=== PATIENT | male | born 1965 | race Caucasian/White ===

== ENCOUNTER → 2018-02-24 11:37 | Outpatient (REF) | payer OTHER, SELFPAY ==
[2018-02-24 19:07] LABS: ALT 37 U/L (12-78); AST 20 U/L (15-37); Albumin 3.9 g/dL (3.4-5.0); Alkaline Phosphatase 54 U/L (46-116); Anion Gap 11.3 mmol/L (3-11); BUN 18 mg/dL (7-18); Bilirubin, Total 0.5 mg/dL (0.2-1.0); CO2 24.7 mmol/L (21.0-32.0); Calcium 8.8 mg/dL (8.5-10.1); Chloride 103 mmol/L (98-107); Glucose 103 mg/dL (70-100); Potassium 3.9 mmol/L (3.5-5.1); Sodium 139 mmol/L (136-145); Total Protein 6.8 g/dL (6.4-8.2)
== END ==
LOC: NCHCN 11:37
PROVIDERS: PCP Family Medicine; Visit Provider Family Medicine
DX: R60.0 Localized edema (principal)
CPT/HCPCS: 80053

== ENCOUNTER 2018-06-01 09:28 | Outpatient (REF) | payer OTHER, SELFPAY ==
[2018-06-01 12:47] LABS: HGB 15.5 g/dL (13.5-17.5); Mean Corp. HGB Concentration 35.2 g/dL (32.0-36.0); Mean Corpuscular Hemoglobin 30.4 pg (27.0-33.0); Mean Corpuscular Volume 86.3 fL (80-95); Mean Platelet Volume 9.7 fL (8.0-11.0); Platelet Count 275 x1000/uL (130-400); RBC Distribution Width 12.8 % (11.8-14.1); White Blood Cell Count 5.76 k/cumm (4.4-10.8)
[2018-06-01 13:07] LABS: Magnesium 1.7 mg/dL (1.8-2.4); TSH (W/Ref FT4) 2.27 uIU/mL (0.358-3.74)
== END 2018-06-01 09:48 ==
LOC: NCHCN 09:28
PROVIDERS: PCP Family Medicine; Visit Provider Family Medicine
DX: R00.2 Palpitations (principal)
CPT/HCPCS: 85027; 83735; 84443

== ENCOUNTER 2018-09-02 09:01 | Day surgery (SDC) | payer OTHER, SELFPAY ==
[2018-09-02 09:19] VITALS: BP 143/83; PULSE 80; RESP 16; TEMP 36.5; O2SAT 96
[2018-09-02] MEDS: Lactated Ringers 1,000 ML 80 ML IV (09:43)
--- NOTE | 2018-09-02 11:43 | BOWEL_PTH ---
PATIENT: Mitesh Mauricio LOC: [facility] U#:[id number] AGE/SX: 52/M ROOM: RE09/02/[address]: Mark Mobley III : 1965 BED: DIS: 09/02/2018 SPEC #: [id number] RECD: 09/02/18 12:53 STATUS: OZIEL REGianfranco #: [id number] NICOLE: 09/02/18 11:[address]: Mark Mobley III DEPT: Surgical Specimen RECD BY: Mary Blanco ENTERED: 09/02/18 12:54 SP TYPE: Bowel OTHR DR: Chinedu George Tissues: 1 - BIOPSY BOWEL 2 - BIOPSY BOWEL Procedures: GROSS AND MICRO LEVEL 4 Comments: [id number]
--- NOTE | 2018-09-02 11:55 | W.COLOREPORT ---
Date of service: 09/02/18 Time of Service: 11:55 Colonoscopy Report Date of procedure: 09/02/18 Pre-op diagnosis general: screening colonoscopy Post-op diagnosis procedure note: other (descending polyp, rectal polyp) Procedure: screening colonoscopy with polypectomy x 2 Surgeon: Mark Mobley III Anesthesia proc note operative: MAC Pathology: other (rectal polyp, descending polyp) Complications: None Disposition: PACU Prep: GoLYTELY Procedure Description: After informed consent was obtained the patient was taken to the procedure room and placed in a left decubitous position. Monitors were applied and a time out was done. The patients name, date of , procedure, allergies to medications and metal in their body was reviewed. The patient was then sedated. Once sedated and comfortable a rectal exam was done. External exam was normal. Internal exam revealed a normal sphincter tone and no palpable masses. The prostate normal. The scope was then introduced and retrofelexed. No internal hemorrhoids were identified. The scope was then advanced to the cecum with out difficulty. The TI and appendiceal orifice were identified. The prep was adequate. The scope was then slowly retracted over 10 minutes back into the rectum. Polyps were removed at descending colon and rectum. The scope was removed and the patient was woken up and taken back to Same day surgery in stable condition. The patient tolerated the procedure well and there were no immediate complications. Follow up: The patient should follow up in ? years (pending path) unless they develop changes in bowel habits or other new gastrointestinal complaints.
--- NOTE | 2018-09-02 11:59 | PDOC.DSDIS_ITS ---
Discharge Plan Disposition Patient Disposition: HOME Condition: Stable Discharge Details Reason For Visit: screening colonoscopy Attending Provider: Mark Mobley III Primary Care Provider: Chinedu George [place] Meds and New Rx's Prescriptions: Continued magnesium 200 mg tablet 400 mg PO DAILY RF: 0 bisacodyl [Dulcolax (bisacodyl)] 5 mg tablet,delayed release (DR/EC) 5 mg PO ONCE Qty: 4 RF: 0 polyethylene glycol 3350 17 gram/dose powder 255 g PO ONCE Qty: 255 RF: 0 metoprolol tartrate 25 MG tablet 50 mg PO DAILY RF: 0 losartan 25 MG tablet 25 mg PO DAILY RF: 0 Discharge Instructions Stand Alone Forms: Colonoscopy Post Instructions, Jose Torres (DSU) Activity:: Activity as Tolerated Diet:: As Tolerated Discharge Orders Discharge Orders: Discharge Order (Routine); Ordered 09/02/18 Ordered By: Mark Mobley III DS: Diagnosis Discharge Diagnosis (1) Encounter for screening colonoscopy: Status: Acute (2) Polyp of rectum: Status: Acute (3) Polyp of descending colon: Status: Acute
[2018-09-02 12:35] VITALS: BP 90/50; PULSE 67; RESP 16; TEMP 36.6; O2SAT 96
== END 2018-09-02 13:45 | disposition home or self-care (01) ==
PROVIDERS: PCP Family Medicine; Visit Provider Surgery
PROC: 0DJD8ZZ Inspection of Lower Intestinal Tract, Via Natural or Artificial Opening Endoscopic (ICD-10-PCS; CPT 45378; principal; 2018-09-02 11:45)
DX: Z12.11 Encounter for screening for malignant neoplasm of colon (principal); K63.5 Polyp of colon; K21.9 Gastro-esophageal reflux disease without esophagitis; I10 Essential (primary) hypertension
CPT/HCPCS: 45380; 88305

== ENCOUNTER 2019-04-10 11:11 | Outpatient (REF) | payer OTHER, SELFPAY ==
[2019-04-10 13:28] LABS: Anion Gap 9.1 mmol/L (3-11); BUN 18 mg/dL (7-18); CO2 25.9 mmol/L (21.0-32.0); CREATININE 0.83 mg/dL (0.70-1.30); Chloride 105 mmol/L (98-107); Glucose 98 mg/dL (70-100); Magnesium 1.8 mg/dL (1.8-2.4); Potassium 4.6 mmol/L (3.5-5.1); Sodium 140 mmol/L (136-145)
== END 2019-04-10 11:31 ==
LOC: NCHCN 11:11
PROVIDERS: PCP Family Medicine; Visit Provider Family Medicine
DX: E83.42 Hypomagnesemia (principal); I10 Essential (primary) hypertension
CPT/HCPCS: 80048; 83735

== ENCOUNTER 2020-01-31 17:37 | Outpatient (REF) | payer OTHER, SELFPAY ==
[2020-01-31 19:51] LABS: Anion Gap 8.4 mmol/L (3-11); BUN 21 mg/dL (7-18); CO2 26.6 mmol/L (21.0-32.0); CREATININE 0.83 mg/dL (0.70-1.30); Calcium 9.1 mg/dL (8.5-10.1); Chloride 104 mmol/L (98-107); Glucose 88 mg/dL (74-106); Potassium 4.2 mmol/L (3.5-5.1); Sodium 139 mmol/L (136-145); TSH (W/Ref FT4) 3.37 uIU/mL (0.36-3.74)
== END 2020-01-31 17:57 ==
LOC: NCHCN 17:37
PROVIDERS: PCP Family Medicine; Visit Provider Family Medicine
DX: R00.2 Palpitations (principal); E83.42 Hypomagnesemia
CPT/HCPCS: 80048; 83735; 84443

== ENCOUNTER 2020-06-27 05:34 | Outpatient (CLI) | payer OTHER, SELFPAY ==
--- NOTE | 2020-07-15 09:14 | ZIOP_ITS ---
Date of service: 07/15/20 Time of Service: 09:15 14 Day Electrical Laboratory Technician Referring Provider:: Chinedu George Indications:: Palpitations Note: This is a 14-day event monitor ordered for symptoms of palpitations Rhythm throughout was sinus. Average heart rate was 80, minimum 46 and maximum 137 There were very rare atrial premature beats There were occasional ventricular ectopic beats There was no atrial fibrillation, no pauses greater than 3 seconds, no high- grade AV block Patient symptoms correlated to sinus tachycardia, sinus rhythm, and an isolated PVC
== END 2020-06-27 05:54 ==
PROVIDERS: PCP Family Medicine; Visit Provider Family Medicine
DX: R00.2 Palpitations (principal)
CPT/HCPCS: 0296T

== ENCOUNTER 2021-04-16 17:27 | Outpatient (REF) | payer OTHER, SELFPAY ==
[2021-04-16 20:07] LABS: BUN 20 mg/dL (7-18); CO2 23.3 mmol/L (21.0-32.0); CREATININE 0.8 mg/dL (0.70-1.30); Calcium 9.2 mg/dL (8.5-10.1); Calculated LDL 150 mg/dL (<100); Cholesterol 225 mg/dL (<200); Glucose 104 mg/dL (74-106); HDL Cholesterol 56 mg/dL (40-60); Magnesium 1.9 mg/dL (1.8-2.4); Triglyceride 96 mg/dL (<150)
[2021-04-16 20:26] LABS: Anion Gap 10.7 mmol/L (3-11); Chloride 104 mmol/L (98-107); Potassium 4.8 mmol/L (3.5-5.1); Sodium 138 mmol/L (136-145)
== END 2021-04-16 17:28 | disposition home or self-care (01) ==
LOC: NCHCN 17:27
PROVIDERS: PCP Family Medicine; Visit Provider Family Medicine
DX: I10 Essential (primary) hypertension (principal); E78.5 Hyperlipidemia, unspecified; Z00.00 Encounter for general adult medical examination without abnormal findings
CPT/HCPCS: 80048; 80061; 83735

== ENCOUNTER 2022-05-18 15:24 | Outpatient (REF) | payer OTHER, SELFPAY ==
[2022-05-18 16:05] LABS: Anion Gap 7.3 mmol/L (3-11); BUN 20 mg/dL (7-18); CO2 27.7 mmol/L (21.0-32.0); CREATININE 0.9 mg/dL (0.70-1.30); Calcium 9.2 mg/dL (8.5-10.1); Chloride 104 mmol/L (98-107); Estimated GFR 100.24 (mL/min/1.73m2); Glucose 101 mg/dL (74-106); Magnesium 1.9 mg/dL (1.8-2.4); Potassium 4.2 mmol/L (3.5-5.1); Sodium 139 mmol/L (136-145)
== END 2022-05-18 15:25 | disposition home or self-care (01) ==
LOC: NCHCN 15:24
PROVIDERS: PCP Family Medicine; Visit Provider Family Medicine
DX: I10 Essential (primary) hypertension (principal); E83.42 Hypomagnesemia
CPT/HCPCS: 80048; 83735

== ENCOUNTER 2023-05-28 18:13 | Outpatient (REF) | payer OTHER, SELFPAY ==
[2023-05-28 14:55] LABS: Anion Gap 7.8 mmol/L (3-11); BUN 19 mg/dL (7-18); CO2 26.2 mmol/L (21.0-32.0); CREATININE 0.8 mg/dL (0.70-1.30); Calcium 9.8 mg/dL (8.5-10.1); Chloride 104 mmol/L (98-107); Estimated GFR 103.22 (mL/min/1.73m2); Glucose 100 mg/dL (74-106); Potassium 4.5 mmol/L (3.5-5.1); Sodium 138 mmol/L (136-145)
== END 2023-05-28 18:14 | disposition home or self-care (01) ==
LOC: NCHCN 18:13
PROVIDERS: PCP Family Medicine; Visit Provider Family Medicine
DX: Z00.00 Encounter for general adult medical examination without abnormal findings (principal); I10 Essential (primary) hypertension
CPT/HCPCS: 80048

== ENCOUNTER → 2023-06-29 12:45 | Outpatient (CLI) | payer OTHER, SELFPAY ==
--- NOTE | 2023-06-29 12:00 | DI.RAD_ITS ---
Exam(s) XR SHOULDER LT COMPLETE 2+V EXAM: XR SHOULDER LT COMPLETE 2+V CLINICAL HISTORY: PAIN IN LT SHOULDER M25.512. TECHNIQUE: 2D digital imaging was performed. Five views. COMPARISON: No exams were available for comparison FINDINGS: BONES: No acute fracture is present. No bony destructive lesion is seen. JOINTS: No dislocation present. [id number] spurring at the AC joint. Glenohumeral joint space is maintained. Minimal spurring at the glenoid. SOFT TISSUE: Tiny calcification projecting at the greater tuberosity could indicate mild calcific ten dinosis. IMPRESSION: Mild degenerative changes. Question mild tendon calcification. DATA REPOSITORY: RADIATION DOSE DELIVERED:
== END ==
PROVIDERS: PCP Family Medicine; Visit Provider Physician Assistant
DX: M25.512 Pain in left shoulder (principal)
CPT/HCPCS: 73030

== ENCOUNTER 2024-05-19 18:23 | Outpatient (REF) | payer OTHER, SELFPAY ==
[2024-05-19 18:07] LABS: Anion Gap 7.9 mmol/L (3-11); BUN 19 mg/dL (7-18); CO2 29.1 mmol/L (21.0-32.0); CREATININE 0.9 mg/dL (0.70-1.30); Calcium 9.2 mg/dL (8.5-10.1); Chloride 107 mmol/L (98-107); Glucose 106 mg/dL (74-106); Magnesium 1.9 mg/dL (1.8-2.4); Sodium 144 mmol/L (136-145)
--- OUTSIDE RECORDS SUMMARY | 2024-05-19 18:23 | XMS_ITS | Encounter Summary ---
Author Organization [facility] Address [address] [place] [address] Care Team Providers Care Senior Science Consultant Name Role Phone Unknown, Provider Primary Care Provider Unaagata ilarabella Encounter Details Date Type Department Care Team (Latest Contact Info) Description 09/02/2018 12:05 EST - 09/02/2018 23:59 EST Hospital Encounter [address] [address] Unknown, ProviderMD Discharge Disposition: Home or Self Care Social History Tobacco Use Types Packs/Day Years Used Date Smoking Tobacco: Never Assessed Sex and Gender Information Value Date Recorded Sex Assigned at Not on file Gender Identity Not on file Sexual Orientation Not on file documented as of this encounter Discharge Disposition Disposition Code Departure Means Destination Home or Self Intermediate documented in this encounter Plan of Treatment Not on file documented as of this encounter Visit Diagnoses Not on filedocumented in this encounter Care Teams Senior Science Consultant Relationship Specialty Start Date End Date Unknown, ProviderMD PCP - General 09/02/18 09/05/18 documented as of this encounter
--- OUTSIDE RECORDS SUMMARY | 2024-05-19 18:23 | XMS_ITS | Clinical Summary ---
Author Organization [facility] Address [address] [place] [address] Care Team Providers Care Hotel Office Manager Name Role Phone Chinedu George MD Primary Care Provider Social History Tobacco Use Types Packs/Day Years Used Date Smoking Tobacco: Never Assessed Interpersonal Safety Answer Date Record ed Physically Hurt Never 02/19/2020 Verbally Threaten Not on file 02/19/2020 Sex and Gender Information Value Date Recorded Sex Assigned at Not on file Gender Identity Not on file Sexual Orientation Not on file Plan of Treatment Health Maintenance Due Date Last Done Comments Hepatitis C Screen 1965 Hepatitis B Vaccine (1 of 3 - 19+ 3-dose series) 09/03 COVID-19 Vaccine (2022-24 season) 2023 Care Teams Hotel Office Manager Relationship Specialty Start Date End Date Chinedu George MD [facility] [place] [address] PCP - General 09/06/18
--- OUTSIDE RECORDS SUMMARY | 2024-05-19 18:23 | XMS_ITS | Referral Summary ---
Author Organization [facility] Address [address] [place] [address] Care Team Providers Care Gas Usage Meter Clerk Name Role Phone Chinedu George MD Primary Care Provider [phone] Social History Tobacco Use Types Packs/Day Years Used Date Smoking Tobacco: Never Assessed Interpersonal Safety Answer Date Record ed Physically Hurt Never 02/19/2020 Verbally Threaten Not on file 02/19/2020 Sex and Gender Information Value Date Recorded Sex Assigned at Not on file Gender Identity Not on file Sexual Orientation Not on file Plan of Treatment Not on file Care Teams Gas Usage Meter Clerk Relationship Specialty Start Date End Date Chinedu George MD [place] [address] PCP - General 09/06/18
--- OUTSIDE RECORDS SUMMARY | 2024-05-19 18:24 | XMS_ITS | Encounter Summary ---
Author Organization [facility] Address [address] [place] [address] Care Team Providers Care Stone Sawyer Name Role Phone Unknown, Provider Primary Care Provider Unava ilable Encounter Details Date Type Department Care Team (Late st Contact Info) Description 09/02/2018 Results Only [facility] [phone] Mark Mobley, DO [address] [place] [phone] Social History Tobacco Use Types Packs/Day Years Used Date Smoking Tobacco: Never Assessed Sex and Gender Information Value Date Recorded Sex Assigned at Not on file Gender Identity Not on file Sexual Orientation Not on file documented as of this encounter Plan of Treatment Not on file documented as of this encounter Procedures Procedure Name Priority Date/Time Associated Diagnosis Comments SURGICAL PATHOLOGY Routine 09/02/2018 19 :07 EST documented in this encounter Results * SURGICAL PATHOLOGY (09/02/2018 19:07 EST) Pathology Report: SURGICAL PATHOLOGY REPORT Reports generated via electronic interface contain original data; however they are lacking the format of the original report. Caution should be taken when reading/interpret ing unformatted reports. Name: ? DAWIT JADE ? Accession #: ? [id number] ? : ? 1965 (Age: 52) ??M ? Collect Date: ? 09/02/2018 ? Location: ? [facility] ? Receive Date: ? 09/02/2018 ? Provider: MARK MOBLEY DO Copy to: GERI MACK MD ? Final Pathologic Diagnosis: A. COLON, DESCENDING, POLYP, BIOPSY: - Colonic mucosa with prominent lymphoid aggregate. - Deeper levels have been examined. B. RECTUM, POLYP, BIOPSY: - Rectal mucosa with prominent lymphoid aggregate and prolapse change. - Deeper levels have been examined. Document reviewed and electronically signed by: MARCO A MILLIGAN MD Report ??Date: 09/06/2018 08:37 By the signature above, the attending physician certifies that he/she has personally conducted a gross and/or microscopic examination of the described specimens and rendered or confirmed the above diagnosis. Specimen(s) Received: A. ??Descending colon polyp (#1) B. ??Rectal polyp (#2) Clinical History: Colon cancer screening polyp Gross Description: A. ?Received in formalin labelled with proper patient identification (initials C, M) and descending colon polyp is a single pink-garcia tissue fragment (0.3 x 0.3 x 0.2 cm). Submitted intact in A1. B. ?Received in formalin labelled with proper patient identification (initials C, M) and rectal polyp is a single, garcia-white tissue fragment (0.2 x 2.2 x 0.1 cm). Submitted intact in B1. Dr. Tan 2018 10:00 AM End of Report [facility] 09/02/2018 19:0 7 EST 09/02/2018 19:07 EST Mark Mobley DO PATHOLOGY ORDERABL ES [facility] [address] [place] [address] documented in this encounter Visit Diagnoses Not on filedocumented in this encounter Care Teams Stone Sawyer Relationship Specialty Start Date End Date Unknown, Provider, PCP - General 09/02/18 09/05/18 documented as of this encounter
== END 2024-05-19 18:24 | disposition home or self-care (01) ==
LOC: NCHCN 18:23
PROVIDERS: PCP Family Medicine; Visit Provider Student in an Organized Health Care Education/Training Program
DX: I10 Essential (primary) hypertension (principal)
CPT/HCPCS: 80048; 83735

== ENCOUNTER 2024-07-15 11:25 | Outpatient (CLI) | payer OTHER, SELFPAY ==
--- OUTSIDE RECORDS SUMMARY | 2024-07-15 11:27 | XMS_ITS | Encounter Summary ---
Author Organization [facility] Address [address] [place] [address] Care Team Providers Care Sheet Manufacturing Supervisor Name Role Phone Unknown, Provider Primary Care Provider Unava ilable Encounter Details Date Type Department Care Team (Late st Contact Info) Description 09/02/2018 Results Only [facility] [phone] Mark Mobley, DO [address] [place] [phone] Social History Tobacco Use Types Packs/Day Years Used Date Smoking Tobacco: Never Assessed Sex and Gender Information Value Date Recorded Sex Assigned at Not on file Legal Sex Male 19:05 EST Gender Identity Not on file Sexual Orientation [...] ? DAWIT JADE ? Accession #: ? [id number] ? : ? 1965 (Age: 52) ??M [...] Tan 2018 10:00 AM End of Report [facility] 09/02/2018 19:0 7 EST 09/02/2018 19:07 EST us Mark Mobley DO PATHOLOGY ORDERABLES Final Result [facility] [address] [place] [address] documented in this encounter Visit Diagnoses Not on filedocumented in this encounter Care Teams Sheet Manufacturing Supervisor Relationship Specialty Start Date End Date Unknown, Provider, PCP - General 09/02/18 09/05/18 documented as of this encounter
--- OUTSIDE RECORDS SUMMARY | 2024-07-15 11:27 | XMS_ITS | Referral Summary ---
Author Organization [facility] Address [address] [place] [address] Care Team Providers Care Chainstitch Sewing Machine Operator Name Role Phone Chinedu George MD Primary Care Provider [phone] Social History Tobacco Use Types Packs/Day Years [...] of Treatment Not on file Care Teams Chainstitch Sewing Machine Operator Relationship Specialty Start Date End Date Chinedu [place] [address] PCP - General 09/06/18
--- OUTSIDE RECORDS SUMMARY | 2024-07-15 11:27 | XMS_ITS | Encounter Summary ---
Author Organization [facility] Address [address] [place] [address] Care Team Providers Care Patient Accounts Specialist Name Role Phone Unknown, Provider Primary Care Provider Unava ilable Encounter Details Date Type Department Care Team (Latest Contact Info) Description 09/02/2018 12:05 EST - 09/02/2018 23:59 EST Hospital Encounter [address] [address] Unknown, Provider, Discharge Disposition: Home or Self Care Social History Tobacco Use Types Packs/Day Years Used Date Smoking Tobacco: Never Assessed Sex and Gender Information Value Date Recorded Sex Assigned at Not on file Legal Sex Male 19:05 EST Gender Identity Not on file Sexual Orientation Not on file documented as of this encounter Discharge Disposition Disposition Code Departure Means Destination Home or Self Penitentiary documented in this encounter Plan of Treatment Not on file documented as of this encounter Visit Diagnoses Not on filedocumented in this encounter Care Teams Patient Accounts Specialist Relationship Specialty Start Date End Date Unknown, Provider, PCP - General 09/02/18 09/05/18 documented as of this encounter
--- OUTSIDE RECORDS SUMMARY | 2024-07-15 11:27 | XMS_ITS | Clinical Summary ---
Author Organization [facility] Address [address] [place] [address] Care Team Providers Care Emergency Worker Name Role Phone Chinedu George MD Primary Care Provider [phone] Social History Tobacco Use Types Packs/Day Years [...] - 19+ 3-dose series) 09/03 COVID-19 Vaccine (2023- season) 2024 Care Teams Emergency Worker Relationship Specialty Start Date End Date Chinedu George MD [address] [place] [address] PCP - General 09/06/18
--- NOTE | 2024-07-15 12:23 | DI.RAD_ITS ---
Exam(s) XR FINGER LT INDEX EXAM: XR FINGER LT INDEX CLINICAL HISTORY: finger pain, MCP. TECHNIQUE: 2D digital imaging was performed. Three views. COMPARISON: None. FINDINGS: BONES: No acute fracture is present. No bony destructive lesion is seen. JOINTS: No dislocation present. Narrowing of the distal interphalangeal joints of the 2nd and 3rd fi ngers with prominent periarticular spurring. Mild spurring at the 2nd metacarpal head. No narrowing of the 2nd MCP joint. SOFT TISSUE: Normal. IMPRESSION: No evidence of acute fracture, dislocation, or subluxation. DATA REPOSITORY: RADIATION DOSE DELIVERED:
--- NOTE | 2024-07-15 13:52 | DI.VRAD_ITS ---
PROCEDURE INFORMATION: Exam: XR Left Finger(s) Exam date and time: 07/15/2024 12:29 PM Age: 58 years old Clinical indication: Other: Pain, mcp TECHNIQUE: Imaging protocol: Radiologic exam of the left fingers. Views: Minimum 2 views. COMPARISON: No relevant prior studies available. FINDINGS: Bones/joints: Imaging is centered on the 2nd finger. No acute fracture or dislocation is identified. There is very mild osteophyte formation about the 2nd metacarpophalangeal and proximal interphalangeal joints, with mild to moderate osteophyte formation about the 2nd distal interphalangeal joint. Mild osteophyte formation is present about some other partially evaluated interphalangeal joints as well. There is no osseous erosion or cortical destruction. Soft tissues: The soft tissues of the 2nd finger are mildly swollen. IMPRESSION: 1. Degenerative changes as described. 2. Mild nonspecific soft tissue swelling of the 2nd finger. Dictated and Authenticated by: Beni Payton MD. Ordering:NIKA Carbajal MD
== END 2024-07-15 11:45 ==
PROVIDERS: PCP Family Medicine; Visit Provider Physician Assistant
DX: M79.645 Pain in left finger(s) (principal)
CPT/HCPCS: 73140

== ENCOUNTER 2024-08-02 14:45 | Outpatient (REF) | payer OTHER, SELFPAY ==
[2024-08-02 15:35] LABS: C-Reactive Protein < 0.50 mg/dL (<or=0.5); Uric Acid 5.1 mg/dL (3.5-7.2)
[2024-08-02 22:08] LABS: Rheumatoid Factor <8.6 IU/mL (<12.0)
[2024-08-03 08:35] LABS: Cyclic Citrullinated Peptide <2.5 U/mL (<5.0)
[2024-08-03 09:46] LABS: Lyme Ab w Rflx to Lyme Confirm Negative (Negative)
== END 2024-08-02 14:46 | disposition home or self-care (01) ==
LOC: NCHCN 14:45
PROVIDERS: PCP Student in an Organized Health Care Education/Training Program; Visit Provider Student in an Organized Health Care Education/Training Program
DX: M25.542 Pain in joints of left hand (principal)
CPT/HCPCS: 85027; 85652; 86200; 84550; 86140; 86431; 86618

== ENCOUNTER 2024-08-04 13:48 | Outpatient (REF) | payer OTHER, SELFPAY ==
[2024-08-04 15:21] LABS: HGB 14.9 g/dL (13.5-17.5); MCH 29.8 pg (27.0-33.0); MCHC 33.9 % (32.0-36.0); MCV 88 fL (80-95); MPV 9.4 fL (8.0-11.0); Platelet Count 260 10^3/uL (130-400); RDW 12.3 % (11.8-14.1); RDW-SD 39.7 fL; WBC 7.22 10^3/uL (4.4-10.8)
[2024-08-04 15:23] LABS: ESR 8 mm/hr (0-20)
== END 2024-08-04 13:49 | disposition home or self-care (01) ==
LOC: NCHCN 13:48
PROVIDERS: PCP Student in an Organized Health Care Education/Training Program; Visit Provider Student in an Organized Health Care Education/Training Program
DX: M25.542 Pain in joints of left hand (principal)
CPT/HCPCS: 85027; 85652

== ENCOUNTER 2024-11-07 15:51 | Outpatient (REF) | payer BC, SELFPAY ==
[2024-11-07 19:30] LABS: COMMENT (LAB VIEW ONLY) 110.55 mg/dL; Microalb ug/mg Crea 7.5 ug/mg Cr
== END 2024-11-07 15:52 | disposition home or self-care (01) ==
LOC: NCHCN 15:51
PROVIDERS: PCP Student in an Organized Health Care Education/Training Program; Visit Provider Student in an Organized Health Care Education/Training Program
DX: I10 Essential (primary) hypertension (principal)
CPT/HCPCS: 82043; 82570

== ENCOUNTER 2025-02-15 11:27 | Outpatient (REF) | payer BC, SELFPAY ==
[2025-02-15 15:52] LABS: Abs Immature Grans 0.01 10^3/uL (0.0-0.06); HCT 42.7 % (40.0-50.0); HGB 14.9 g/dL (13.5-17.5); Immature Grans % 0.2 %; MCH 30.0 pg (27.0-33.0); MCHC 34.9 % (32.0-36.0); MCV 86 fL (80-95); MPV 9.4 fL (8.0-11.0); Platelet Count 267 10^3/uL (130-400); RBC 4.96 10^6/uL (4.36-5.78); RDW 12.5 % (11.8-14.1); RDW-SD 39.1 fL; WBC 6.27 10^3/uL (4.4-10.8)
[2025-02-15 16:30] LABS: ALT 38 U/L (16-63); AST 26 U/L (15-37); Albumin 3.8 g/dL (3.4-5.0); Alkaline Phosphatase 61 U/L (46-116); Anion Gap 7.5 mmol/L (3-11); BUN 21 mg/dL (7-18); Bilirubin, Total 0.6 mg/dL (0.2-1.0); CO2 27.5 mmol/L (21.0-32.0); Calcium 9.1 mg/dL (8.5-10.1); Chloride 104 mmol/L (98-107); Estimated GFR 101.95 (mL/min/1.73m2); Glucose 102 mg/dL (74-106); Magnesium 2.0 mg/dL (1.8-2.4); Potassium 4.4 mmol/L (3.5-5.1); Sodium 139 mmol/L (136-145); Total Protein 6.8 g/dL (6.4-8.2)
== END 2025-02-15 11:28 | disposition home or self-care (01) ==
LOC: NCHCN 11:27
PROVIDERS: PCP Student in an Organized Health Care Education/Training Program; Visit Provider Student in an Organized Health Care Education/Training Program
DX: I10 Essential (primary) hypertension (principal)
CPT/HCPCS: 80053; 83735; 85025